=== PATIENT | male | born 1950 | race Caucasian/White ===

== ENCOUNTER 2017-06-25 22:58 | Emergency (ER) | payer MEDICARE, BC ==
--- NOTE | 2017-06-26 00:37 | EDM.PDOC ---
ED HPI GENERAL MEDICAL PROBLEM - General Chief Complaint: ENT Problem Stated Complaint: NOSE BLEED Time Seen by Provider: 06/26/17 00:30 Source of Information: Reports: Patient History Limitations: Reports: No Limitations - History of Present Illness INITIAL COMMENTS - FREE TEXT/NARRATIVE: 67-year-old male presents to the ED with an aggressive left-sided nasal hemorrhage. He states he felt a sore up in his left nose and protected out. This produced significant bleeding that started about 0 hrs. this evening and has persisted. He waited about an hour before coming to the ED and he's been squeezing his nose closed for the last hour. No bleeding down the back of the throat now but there was initially. He is coughed up some clots as well. When the bleeding was at its worst it oozed out the right naris as well. He has had no recent cold or upper respiratory tract infection or allergy issues. At the time of my initial examination the bleeding had stopped. Onset: Sudden Onset Date: 06/25/17 Onset Time: 21:20 Duration: Hour(s): Location: Reports: Face (Left naris) Quality: Reports: Burning Severity: Moderate Improves with: Reports: Other (Firm compression of the nose to provide top and on.) Context: Reports: Other (Delta a sore spot in his nose on the left nasal septum and picked at it and the bleeding started and would not stop. 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 Social & Family History - Tobacco Use Smoking Status *Q: Never Smoker - Recreational Drug Use Recreational Drug Use: No - Living Situation & Occupation Living situation: Reports: Occupation: Employed ED ROS ENT - Review of Systems Review Of Systems: See Below Constitutional: Reports: No Symptoms HEENT: Reports: Nosebleed, Nose Pain Respiratory: Reports: No Symptoms (Active from the left naris.) Cardiovascular: Reports: No Symptoms Endocrine: Reports: No Symptoms GI/Abdominal: Reports: No Symptoms : Reports: No Symptoms Musculoskeletal: Reports: No Symptoms Skin: Reports: No Symptoms Neurological: Reports: No Symptoms Psychiatric: Reports: No Symptoms Hematologic/Lymphatic: Reports: No Symptoms Immunologic: Reports: No Symptoms ED EXAM, ENT - Physical Exam Exam: See Below Exam Limited By: No Limitations General Appearance: Alert, WD/WN, No Apparent Distress Eye Exam: Bilateral Eye: Normal Inspection Nose: Active Bleeding (Minimal bleeding from an area on the left anterior nasal septum.), Dried Blood (At the base of both naris.) Mouth/Throat: Normal Inspection, Normal Gums, Normal Lips, Normal Oropharynx, Other (No blood in the oropharynx.) Head: Atraumatic, Normocephalic Neck: Normal Inspection, Supple, Non-Tender, Full Range of Motion Respiratory/Chest: No Respiratory Distress, Lungs Clear, Normal Breath Sounds, No Accessory Muscle Use Course - Vital Signs Last Recorded V/S: Last Vital Signs Temp 36.7 C 06/26/17 00:30 Pulse 74 06/26/17 00:30 Resp 16 06/26/17 00:30 BP 134/86 06/26/17 00:30 Pulse Ox 97 06/26/17 00:30 - Radiology Interpretation Free Text/Narrative:: 67-year-old male presents to the ED with acute onset of severe left nasal hemorrhage starting about 0 hrs. last evening. He tried to control it at home for over an hour was unsuccessful. He therefore drove himself to the hospital. Once her the nurses advise compression of the naris completely for tamponade. He has been able to get the bleeding to stop with this technique. On my examination the right naris is completely normal. The left naris showed an area of arterial bleeding from the left mid anterior nasal septum. Area was cauterized with silver nitrate but it started bleeding again with this procedure. It seemed to come under control with 4 silver nitrate sticks. I will review his nose in 10-15 minutes. - Re-Assessments/Exams Free Text/Narrative Re-Assessment/Exam: 06/26/17 00:45; no further bleeding identified. Patient will be discharged to home to use Polysporin ointment into each nares at bedtime for the next week then Wednesdays and for the next few weeks. Departure - Departure Time of Disposition: 00:57 Disposition: Home, Self-Care 01 Condition: Fair Clinical Impression: Epistaxis - Discharge Information Instructions: Nosebleed, [id number] Referrals: PCP,Not In Area [Primary Care Provider] - Forms: ED Department Discharge Additional Instructions: Evaluation in the emergency room tonight in regards to persistent left-sided nosebleed that started at 2120 hrs. last evening. Examination identified a area of arterial bleeding from the left anterior nasal septum. This area was cauterized with silver nitrate and he did bring the bleeding under complete control. Treatment at home is to not blow the nose or do much with the nose for the next 48 hours. Suggest use of Polysporin ointment on the end of a Q-tip applied to the left nasal septum every night at bedtime for one week and will help allow this area to heal and hopefully prevent any further nosebleeds. Of course return to the ED if any further bleeding occurs. Of note you will experience the the"snuffles" for about one hour after cauterization of the nose with excess fluid and feeling like the nose is clogged up but after an hour it settles down.
[2017-06-26 04:20] VITALS: BP 134/86
== END 2017-06-26 01:08 | disposition home or self-care (01) ==
LOC: JD.ED 22:58
DX: R04.0 Epistaxis (principal); Z98.890 Other specified postprocedural states; Z90.49 Acquired absence of other specified parts of digestive tract
CPT/HCPCS: 30901; 99282; 99283-25